=== PATIENT | female | born 1980 | race Caucasian/White ===

== ENCOUNTER 2020-07-08 09:05 | Outpatient (REF) | payer BC, SELFPAY ==
[2020-07-08 11:51] LABS: Hematocrit 38.5 % (37-47); Hemoglobin 12.8 g/dl (12.0-16.0); Mean Corpuscular HGB Conc 33.2 g/dl (31.0-35.0); Mean Corpuscular Hemoglobin 30.6 pg (27.0-33.0); Mean Corpuscular Volume 92.1 fL (80-98); Platelet Count 230 X10*3/uL (160-400); Red Blood Count 4.18 X10*6/uL (4.20-5.50); Red Cell Distribution Width 12.4 % (11.0-16.0); White Blood Count 3.6 X10*3/uL (4.8-10.8)
[2020-07-08 12:21] LABS: Alanine Aminotransferase 14 U/L (0-31); Albumin Level 4.6 g/dL (3.5-5.0); Alkaline Phosphatase 62 U/L (39-117); Anion Gap 12 (12-20); Aspartate Amino Transferase 17 U/L (5-31); Bilirubin Total 0.3 mg/dL (0.0-1.0); Blood Urea Nitrogen 16 mg/dL (9-16); Calcium 8.9 mg/dL (8.4-10.2); Carbon Dioxide 25 mmol/L (22-29); Chloride 105 mmol/L (96-108); Estimated Glomerular Filt Rate > 60; Glucose Fasting 90 mg/dL (60-99); Potassium 4.3 mmol/l (3.3-5.1); Sodium 138 mmol/L (135-145); Total Protein 7.4 g/dL (6.5-8.0)
[2020-07-08 12:40] LABS: Cholesterol 225 mg/dL; HDL Cholesterol 83 mg/dL; LDL Cholesterol Calculated 135 mg/dl; Triglycerides 39 mg/dL
== END 2020-07-08 09:06 | disposition home or self-care (01) ==
LOC: HO.HMGCLDS 09:05
PROVIDERS: PCP Internal Medicine; Visit Provider Internal Medicine
DX: M72.2 Plantar fascial fibromatosis (principal); Z00.00 Encounter for general adult medical examination without abnormal findings
CPT/HCPCS: 36415; 80053; 80061; 85027

== ENCOUNTER 2021-08-26 19:17 | Outpatient (REF) | payer BC, SELFPAY | END 2021-08-26 19:18 | disposition home or self-care (01) | LOC: HO.LNP 19:17 | PROVIDERS: Visit Provider Hospitalist | DX: Z20.822 Contact with and (suspected) exposure to COVID-19 (principal) | CPT/HCPCS: U0003; U0005 ==

== ENCOUNTER 2023-05-21 11:00 | Outpatient (AMB) | payer OTHER, SELFPAY ==
--- NOTE | 2023-05-21 11:05 | MHC.PC.OV ---
Vital Signs 05/21/23 11:06 Height 5 ft 5 in Weight 145 lb BMI 24.1 BP 94/64 Blood Pressure Location Lt brachial Position Sitting Pulse 56 Pulse Source Pulse Oximeter Pulse Oximetry (%) 98 Oxygen Delivery Method Room Air Intake Visit Reasons: Follow up Intake Note: Pt is here today for a follow up visit. Pt has a form for doctor to fill out. Allergies No Known Allergies Allergy (Verified 05/21/23 11:10) Tobacco use date assessed: 05/21/23 Dental Screening Dental Screen Date: 05/21/23 Did you have a dental visit in the last 12 months?: Yes Did you have a dental problem in the last 6 months where you did not have access to dental care?: No Was dental information given to patient?: Patient has dentist HPI Follow up HPI Details Pt presents for f/u anxiety, stable on Lexapro. Patient patient follows up with psychiatrist. She complains of chronic neck and lower back pain worse when sitting for long time, driving to work in [place] 3 times a week. 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 She works for [employer] Medical History Plantar fascia syndrome Annual physical exam Eczema Wrist arthralgia Anxiety Family History Mother Mental health disorder Maternal Grandmother Ovarian cancer Father No problems noted. Sister Mental health disorder Brother Mental health disorder Social History Household Members Other:: in anesthesiologist program at [employer], 4 children (12-4) Housing: House Alcohol intake: never Patient Tobacco Use Status: Never used Tobacco e-Cigarette/Vaping Use: Never Used Current occupational status: employed Cognitive needs: No Hearing needs: No Vision needs: No Questionnaire Thrive Questionnaire Date Thrive assessed: 10/15/22 EDILIA-7 AMB Questionnaire EDILIA-7 Date EDILIA - 7 assessed: 10/15/22 Source: Developed by Drs. Uri Hayden, Rachel Winston, Kt Vargas and colleagues, with an educational marguerite from [employer]. Review of Systems Const All systems reviewed & are unremarkable except as noted in HPI and below Reports no additional complaints Eyes Reports no additional complaints ENT Reports no additional complaints Card Reports no additional complaints Resp Reports no additional complaints GI Reports no additional complaints Physical exam (Primary Care) Vital Signs: Last Vital Signs Pulse 56 05/21/23 11:06 BP 94/64 05/21/23 11:06 Pulse Ox 98 05/21/23 11:06 Oxygen Delivery Method Room Air 05/21/23 11:06 BMI result Body Mass Index 24.1 Tobacco/Smoking Status: Tobacco use Status Tobacco use date assessed 05/21/23 05/21/23 11:12 Patient Tobacco Use Status Never used Tobacco 05/21/23 11:12 e-Cigarette/Vaping Use Never Used 05/21/23 11:07 Thrive Assessment: Date of Thrive Assessment Date Thrive assessed 10/15/22 05/21/23 11:07 Const General: no acute distress HENMT Throat: Yes posterior oropharynx normal Neck Neck: Yes supple Resp Effort & Inspection: normal respiratory effort Auscultation: clear to auscultation bilaterally Cardio Rhythm: regular rhythm Heart sounds: S1 normal heart sound present and S2 normal heart sound present GI Palpation (GI): Soft to palpation Assessment and Plan Assessment & Plan (1) Chronic lower back pain: Code(s): M54.50 - Low back pain, unspecified; G89.29 - Other chronic pain Plan: Continue regular exercise chiropractor and massage therapy. The work restriction form was filled out today recommending patient to mental health social worker instead of commuting to [place] 3 times a week (2) Chronic neck pain: Code(s): M54.2 - Cervicalgia; G89.29 - Other chronic pain (3) Anxiety: Comment: fear of public speaking, follows up with psychiatrist Code(s): F41.9 - Anxiety disorder, unspecified Plan: Continue Lexapro and follow-up with psychiatrist Coding Level of Care Code Est Pt Level 3 (70490) Diagnoses Chronic lower back pain M54.50; G89.29 Chronic neck pain M54.2; G89.29 Anxiety F41.9
[2023-05-21 11:06] VITALS: BP 94/64; PULSE 56; O2SAT 98; BMI 24.1
== END 2023-05-21 12:24 | disposition home or self-care (01) ==
PROVIDERS: PCP Internal Medicine; Visit Provider Internal Medicine
DX: M54.50 Low back pain, unspecified (principal); G89.29 Other chronic pain; M54.2 Cervicalgia; F41.9 Anxiety disorder, unspecified
CPT/HCPCS: 99213